=== PATIENT | female | born 1985 | race African-American/Black ===

== ENCOUNTER 2016-12-13 15:12 | Emergency (ER) | payer OTHER ==
[~2016-12-13] VITALS: Ht 157.5 cm; Wt 77.1 kg
[~2016-12-13 15:12] MED LIST: ACTICIN 5% 60GM60 GM TOP; BENADRYL ALLERG25 MG PO; HYDROCHLOROTHIA25 M1 PO; TRIAMCINOL0.1 %/453 TOP; VITAFOL-OB+DHA1 KIT PO
[2016-12-13 15:17] VITALS: BP 106/54
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
[2016-12-13 15:50] LABS: ABSOLUTE BASOPHIL COUNT 0 /CUMM (0.0-0.2); ABSOLUTE EOSINOPHIL COUNT 0.1 /CUMM (0.0-0.7); ABSOLUTE GRANULOCYTE CT 4.9 /CUMM (1.4-6.5); ABSOLUTE LYMPH COUNT 1.7 /CUMM (1.2-3.4); ABSOLUTE MONOCYTE COUNT 0.4 /CUMM (0.10-0.60); BASOPHIL % 0.4 % (0.0-2.0); EOSINOPHIL % 1.2 % (0-5); GRANULOCYTE % 68.8 % (42.2-75.2); HEMATOCRIT 39.4 % (37-47); MEAN CORPUSCULAR HGB 25.9 PG (27.0-31.0); MEAN CORPUSCULAR HGB CONC 33.1 G/DL (33.0-37.0); MEAN CORPUSCULAR VOLUME 78.3 FL (81.0-99.0); RBC DISTRIBUTION WIDTH 17.4 % (11.5-14.5); RED BLOOD CELL CT 5.03 /CUMM (4.20-5.40); WHITE BLOOD CELL COUNT 7.2 /CUMM (4.8-10.8)
[2016-12-13 16:04] LABS: PLATELET COUNT 371 /CUMM (130-400)
[2016-12-13] MEDS ORDERED: CENTRUM FLAVOR1 EAC1 PO (17:10)
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
== END 2016-12-13 18:07 ==
LOC: ERH 15:12
PROVIDERS: Physician Assistant
DX: R10.31 Right lower quadrant pain (principal); R10.32 Left lower quadrant pain; V43.52XA Car driver injured in collision with other type car in traffic accident, initial encounter; Y92.488 Other paved roadways as the place of occurrence of the external cause
CPT/HCPCS: 74177